=== PATIENT | male | born 1990 | race Caucasian/White ===

== ENCOUNTER 2024-10-25 19:30 | Inpatient (IN) | payer MEDICAID ==
[~2024-10-25] VITALS: Ht 170.2 cm; Wt 64.4 kg
[2024-10-25 20:00] VITALS: BP 114/65; PULSE 107; RESP 18; TEMP 37.5; O2SAT 97
[2024-10-25 20:45] VITALS: BP 114/65; PULSE 107; RESP 18; TEMP 37.5
[2024-10-25] MEDS ORDERED: ONDANSETRON HCL 4MG/2ML INJ IV PRN (21:00)
[2024-10-25] MEDS ORDERED: THROAT LOZENGES-BENZOCAINE/MENTH/CETYLPYRD CL LOZENGES MM PRN (21:00)
[2024-10-25] MEDS ORDERED: DEXTROSE 50% WATER 50ML SYRINGE IV PRN (21:00)
[2024-10-25] MEDS: INSULIN LISPRO 100 UNITS/ML SUBCUT SCH (23:45)
[2024-10-25] MEDS: TRAZODONE HCL 50MG TABLET PO SCH (23:50)
[2024-10-25] MEDS: BLOOD SUGAR DIAGNOSTIC STRIP TEST SCH (23:50)
[2024-10-25] MEDS: HEPARIN 5000 UNITS/ML VIAL SUBCUT SCH (23:50)
[2024-10-26] MEDS: INSULIN GLARGINE 100 UNITS/ML SUBCUT SCH (00:20)
[2024-10-26] MEDS: MAGNESIUM/ALUMINUM HYDROXIDE/SIMETHICONE 30ML UDC PO PRN (00:38)
[2024-10-26 02:47] LABS: CLARITY URINE CLEAR (CLEAR); COLOR URINE YELLOW (YELLOW); GLUCOSE URINE NEGATIVE (NEGATIVE); KETONES URINE NEGATIVE (NEGATIVE); LEUKOCYTE ESTERASE URINE NEGATIVE (NEGATIVE); NITRITE URINE NEGATIVE (NEGATIVE); OCCULT BLOOD URINE NEGATIVE (NEGATIVE); PROTEIN URINE NEGATIVE (NEGATIVE); SPECIFIC GRAVITY URINE 1.023 (1.005-1.030); UROBILINOGEN URINE 0.2 E.U./dL (0.2-1.0)
[2024-10-26 03:08] LABS: *AMPHETAMINES SCREEN URINE NEGATIVE (NEGATIVE); *BARBITURATES SCREEN URINE NEGATIVE (NEGATIVE); *BENZODIAZEPINES SCREEN URINE PRESUMPTIVE POSITIVE (NEGATIVE); *COCAINE SCREEN URINE NEGATIVE (NEGATIVE); CANNABINOID URINE SCREEN PRESUMPTIVE POSITIVE (NEGATIVE); METHADONE URINE SCREEN NEGATIVE (NEGATIVE); OPIATES URINE SCREEN NEGATIVE (NEGATIVE); PHENCYCLIDINE URINE SCREEN NEGATIVE (NEGATIVE)
[2024-10-26 03:09] LABS: ECSTASY MDMA SCREEN URINE NEGATIVE (NEGATIVE)
[2024-10-26 07:35] LABS: BASOPHILS % 0.2 % (0.0-2.0); EOSINOPHILS % 1.1 % (0.0-5.0); HEMATOCRIT. 34.5 % (42.0-52.0); HEMOGLOBIN. 11.4 g/dL (14.0-18.0); LYMPHOCYTES % 20.1 % (20.0-50.0); MEAN CORPUSCULAR HEMOGLOBIN 32.3 pg (28.0-32.0); MEAN CORPUSCULAR VOLUME 97.9 fL (80.0-94.0); MEAN PLATELET VOLUME 9.9 fl (7.4-10.4); MONOCYTES % 6.7 % (2.0-8.0); NEUTROPHILS % 71.9 % (40.0-76.0); PLATELET 70 x1000/uL (130-400); RED BLOOD CELL COUNT 3.52 mill/uL (4.7-6.1); RED CELL DISTRIBUTION WIDTH 15.9 % (11.6-14.6); WHITE BLOOD COUNT 10.5 x1000/uL (4.5-11.0)
[2024-10-26 07:43] VITALS: PULSE 98; RESP 16; O2SAT 98
[2024-10-26] MEDS: IPRATROPIUM/ALBUTEROL 0.5-3(2.5)MG/3ML NEB HHN SCH (07:43)
[2024-10-26 08:00] VITALS: BP 126/70; PULSE 98; RESP 14; TEMP 37; O2SAT 98
[2024-10-26 08:08] LABS: CHLORIDE 101 mEq/L (98-107); SODIUM 134 mEq/L (136-145)
[2024-10-26 08:09] LABS: CALCIUM 8.1 mg/dL (8.7-10.4); CARBON DIOXIDE 25 mEq/L (21-32)
[2024-10-26 08:14] LABS: CREATININE 0.4 mg/dL (0.6-1.3); GLUCOSE 120 mg/dL (70-105); TRIGLYCERIDE 59 mg/dL (0-150)
[2024-10-26 08:15] LABS: LDL CHOLESTEROL 42 mg/dL (5-100); THYROID STIMULATING HORMONE 3.58 uIU/mL (0.55-4.78); UREA NITROGEN BLOOD 17 mg/dL (9-23)
[2024-10-26 08:16] LABS: ALANINE AMINOTRANSFERASE 167 IU/L (10-49); ALBUMIN 2.5 g/dL (3.2-4.8); ASPARTATE AMINOTRANSFERASE 104 IU/L (<34); CHOLESTEROL 119 mg/dL (<200); HDL CHOLESTEROL 54 mg/dL (>55); T4 FREE 1.25 ng/dL (0.89-1.76)
[2024-10-26 08:17] LABS: BILIRUBIN TOTAL 1.4 mg/dL (0.1-1.0); PROTEIN TOTAL 6.5 g/dL (6.0-8.3)
[2024-10-26] MEDS: LACTULOSE 20G/30ML UDC PO SCH (09:10)
[2024-10-26] MEDS: NICOTINE 7MG PATCH TD PRN (09:10)
[2024-10-26] MEDS: FISH OIL/OMEGA-3 FATTY ACIDS 1000MG CAPSULE PO SCH (09:10)
[2024-10-26] MEDS: ASPIRIN 81MG TABLET PO SCH (09:11)
[2024-10-26] MEDS: EMPAGLIFLOZIN 10MG TABLET PO SCH (09:11)
[2024-10-26] MEDS: SPIRONOLACTONE 25MG TABLET PO SCH (09:11)
[2024-10-26] MEDS: LOSARTAN 25 MG TABLET PO SCH (09:11)
[2024-10-26] MEDS: THIAMINE HCL 100MG TABLET PO SCH (09:12)
[2024-10-26] MEDS: MULTIVITAMINS,THER W-MINERALS TABLET PO SCH (09:12)
[2024-10-26] MEDS: FUROSEMIDE 20MG TABLET PO SCH (09:12)
[2024-10-26] MEDS: GABAPENTIN 100MG CAPSULE PO SCH (09:12)
[2024-10-26] MEDS: METOPROLOL SUCCINATE 50MG ER TABLET PO SCH (09:13)
[2024-10-26 12:22] VITALS: PULSE 92; RESP 16; O2SAT 98
[2024-10-26 13:05] LABS: INR 1.2; PROTHROMBIN TIME 12.8 sec (9.6-11.0)
[2024-10-26 16:30] VITALS: PULSE 95; RESP 16; O2SAT 98
[2024-10-26 17:43] LABS: TROPONIN I HIGH SENSITIVITY 78 ng/L (3.0-53)
[2024-10-26 20:00] VITALS: BP 124/86; PULSE 72; RESP 20; TEMP 36.5; O2SAT 96
[2024-10-26 20:32] VITALS: PULSE 105; RESP 18; O2SAT 97
[2024-10-26 20:59] LABS: CREATINE KINASE MB FRACTION 1.5 ng/mL (0.5-3.6)
[2024-10-26] MEDS: CLOTRIMAZOLE 1% CREAM 15GM TOP SCH (22:56)
[2024-10-26] MEDS: LOPERAMIDE HCL 2MG CAPSULE PO PRN (23:44)
[2024-10-27 07:32] VITALS: PULSE 78; RESP 18
[2024-10-27 08:00] VITALS: BP 111/77; PULSE 100; RESP 18; TEMP 36.8; O2SAT 97
[2024-10-27 08:10] LABS: CARBON DIOXIDE 25 mEq/L (21-32); CHLORIDE 103 mEq/L (98-107); SODIUM 135 mEq/L (136-145)
[2024-10-27 08:12] LABS: CALCIUM 8.7 mg/dL (8.7-10.4)
[2024-10-27 08:15] LABS: CREATININE 0.5 mg/dL (0.6-1.3)
[2024-10-27 08:16] LABS: GLUCOSE 88 mg/dL (70-105)
[2024-10-27 08:17] LABS: UREA NITROGEN BLOOD 16 mg/dL (9-23)
[2024-10-27 08:19] LABS: PHOSPHORUS 4.1 mg/dL (2.5-4.9)
[2024-10-27 08:53] LABS: BASOPHILS % 0.2 % (0.0-2.0); EOSINOPHILS % 1.4 % (0.0-5.0); HEMATOCRIT. 37.9 % (42.0-52.0); HEMOGLOBIN. 12.6 g/dL (14.0-18.0); LYMPHOCYTES % 18.7 % (20.0-50.0); MEAN CORPUSCULAR HEMOGLOBIN 32.5 pg (28.0-32.0); MEAN CORPUSCULAR HGB CONC 33.2 g/dL (31.0-37.0); MEAN CORPUSCULAR VOLUME 97.7 fL (80.0-94.0); MEAN PLATELET VOLUME 9.6 fl (7.4-10.4); MONOCYTES % 5.2 % (2.0-8.0); NEUTROPHILS % 74.5 % (40.0-76.0); PLATELET 72 x1000/uL (130-400); RED BLOOD CELL COUNT 3.88 mill/uL (4.7-6.1); RED CELL DISTRIBUTION WIDTH 15.9 % (11.6-14.6)
[2024-10-27 20:00] VITALS: BP 105/68; PULSE 104; RESP 19; TEMP 36.6; O2SAT 99
[2024-10-27 20:05] VITALS: PULSE 92; RESP 18; O2SAT 97
[2024-10-27 23:47] VITALS: PULSE 89; RESP 18; O2SAT 98
[2024-10-28 08:00] VITALS: BP 113/71; PULSE 88; RESP 20; TEMP 36.3; O2SAT 98
[2024-10-28 09:43] VITALS: PULSE 97; RESP 16; O2SAT 97
[2024-10-28 13:17] VITALS: PULSE 90; RESP 16; O2SAT 99
[2024-10-28 17:20] VITALS: PULSE 94; RESP 18; O2SAT 99
[2024-10-28 20:00] VITALS: BP 103/63; PULSE 90; RESP 19; TEMP 36.5; O2SAT 97
[2024-10-29] VITALS (7 sets, daily range): BP systolic 96–113; BP diastolic 65–76; PULSE 94–126; RESP 18–20; TEMP 36.4–37.8; O2SAT 95–99
[2024-10-29 06:13] LABS: BASOPHILS % 0.4 % (0.0-2.0); CALCIUM 8.3 mg/dL (8.7-10.4); CARBON DIOXIDE 21 mEq/L (21-32); CHLORIDE 105 mEq/L (98-107); EOSINOPHILS % 2.1 % (0.0-5.0); HEMATOCRIT. 34.9 % (42.0-52.0); HEMOGLOBIN. 11.7 g/dL (14.0-18.0); MEAN CORPUSCULAR HEMOGLOBIN 33.2 pg (28.0-32.0); MEAN CORPUSCULAR HGB CONC 33.7 g/dL (31.0-37.0); MEAN CORPUSCULAR VOLUME 98.6 fL (80.0-94.0); MEAN PLATELET VOLUME 9.3 fl (7.4-10.4); MONOCYTES % 8.5 % (2.0-8.0); PLATELET 62 x1000/uL (130-400); POTASSIUM 3.5 mEq/L (3.5-5.1); RED BLOOD CELL COUNT 3.53 mill/uL (4.7-6.1); RED CELL DISTRIBUTION WIDTH 15.8 % (11.6-14.6); SODIUM 134 mEq/L (136-145); WHITE BLOOD COUNT 10.9 x1000/uL (4.5-11.0)
[2024-10-29 06:18] LABS: GLUCOSE 77 mg/dL (70-105)
[2024-10-29 06:19] LABS: UREA NITROGEN BLOOD 13 mg/dL (9-23)
[2024-10-29 06:21] LABS: PHOSPHORUS 3.5 mg/dL (2.5-4.9)
[2024-10-29 06:29] LABS: CREATININE 0.3 mg/dL (0.6-1.3)
[2024-10-29] MEDS: ACETAMINOPHEN 325MG TABLET PO PRN (08:37)
[2024-10-30] VITALS (7 sets, daily range): BP systolic 107–114; BP diastolic 55–70; PULSE 72–112; RESP 16–20; TEMP 36.3–36.4; O2SAT 97–98
[2024-10-31 02:19] VITALS: PULSE 88; RESP 18; O2SAT 97
[2024-10-31 07:15] LABS: CARBON DIOXIDE 22 mEq/L (21-32); CHLORIDE 104 mEq/L (98-107); POTASSIUM 3.2 mEq/L (3.5-5.1); SODIUM 136 mEq/L (136-145)
[2024-10-31 07:16] LABS: CALCIUM 8.5 mg/dL (8.7-10.4)
[2024-10-31 07:20] LABS: IRON 66 ug/dL (65-175)
[2024-10-31 07:21] LABS: GLUCOSE 110 mg/dL (70-105); UREA NITROGEN BLOOD 13 mg/dL (9-23)
[2024-10-31 07:23] LABS: PHOSPHORUS 3.8 mg/dL (2.5-4.9); TOTAL IRON BINDING CAPACITY 322 ug/dl (250-425)
[2024-10-31 07:26] LABS: CREATININE 0.4 mg/dL (0.6-1.3)
[2024-10-31 08:00] VITALS: BP 97/62; PULSE 62; RESP 18; TEMP 36.3; O2SAT 98
[2024-10-31 08:09] LABS: BASOPHILS % 0.6 % (0.0-2.0); EOSINOPHILS % 2.1 % (0.0-5.0); HEMATOCRIT. 30.8 % (42.0-52.0); HEMOGLOBIN. 10.3 g/dL (14.0-18.0); LYMPHOCYTES % 25.7 % (20.0-50.0); MEAN CORPUSCULAR HEMOGLOBIN 32.8 pg (28.0-32.0); MEAN CORPUSCULAR HGB CONC 33.4 g/dL (31.0-37.0); MEAN CORPUSCULAR VOLUME 98.1 fL (80.0-94.0); MEAN PLATELET VOLUME 9.7 fl (7.4-10.4); MONOCYTES % 11.6 % (2.0-8.0); PLATELET 54 x1000/uL (130-400); RED BLOOD CELL COUNT 3.14 mill/uL (4.7-6.1); RED CELL DISTRIBUTION WIDTH 15.3 % (11.6-14.6); WHITE BLOOD COUNT 7.6 x1000/uL (4.5-11.0)
[2024-10-31] MEDS: POTASSIUM CHLORIDE 20MEQ TABLET SR PO NR (18:11)
[2024-10-31 20:00] VITALS: BP 113/70; PULSE 111; RESP 18; TEMP 36.7; O2SAT 97
[2024-11-01 08:00] VITALS: BP 110/74; PULSE 82; RESP 20; TEMP 36.4; O2SAT 100
[2024-11-01 20:00] VITALS: BP 111/75; PULSE 105; RESP 19; TEMP 36.2; O2SAT 99
[2024-11-02 08:00] VITALS: BP 109/55; PULSE 89; RESP 20; TEMP 36.4; O2SAT 99
[2024-11-02] MEDS: ACETAMINOPHEN 325MG TABLET PO PRN (13:23)
[2024-11-02 20:00] VITALS: BP 111/74; PULSE 8; RESP 18; TEMP 36.2; O2SAT 98
[2024-11-03 08:00] VITALS: BP 115/71; PULSE 19; PULSE 68; RESP 19; TEMP 36.5; O2SAT 97
[2024-11-03 20:00] VITALS: BP 111/69; PULSE 96; RESP 18; TEMP 36.7; O2SAT 100
[2024-11-04 08:00] VITALS: BP 105/73; PULSE 92; RESP 18; TEMP 36.7; O2SAT 98
[2024-11-04 19:59] VITALS: BP 99/54; PULSE 88; RESP 20; TEMP 36.4; O2SAT 100
[2024-11-05 07:32] VITALS: BP 143/72; PULSE 87; RESP 20; TEMP 36.7; O2SAT 100
[2024-11-05 20:00] VITALS: BP 110/57; PULSE 86; RESP 18; TEMP 36.8; O2SAT 98
[2024-11-06 08:00] VITALS: BP 113/70; PULSE 89; RESP 20; TEMP 36.4; O2SAT 98
[2024-11-06 20:00] VITALS: BP 126/83; PULSE 60; RESP 16; TEMP 36.6; O2SAT 99
[2024-11-07 04:00] VITALS: BP 103/51; PULSE 97; RESP 16; TEMP 37.1; O2SAT 98
[2024-11-07 08:00] VITALS: BP 125/76; PULSE 88; RESP 18; TEMP 37.2; O2SAT 99
[2024-11-07 20:00] VITALS: BP 126/76; PULSE 95; RESP 19; TEMP 36.9; O2SAT 100
[2024-11-08 05:55] LABS: CHLORIDE 108 mEq/L (98-107); POTASSIUM 3.5 mEq/L (3.5-5.1); SODIUM 140 mEq/L (136-145)
[2024-11-08 05:56] LABS: CARBON DIOXIDE 22 mEq/L (21-32)
[2024-11-08 05:57] LABS: CALCIUM 8.8 mg/dL (8.7-10.4)
[2024-11-08 06:01] LABS: CREATININE 0.4 mg/dL (0.6-1.3); GLUCOSE 131 mg/dL (70-105)
[2024-11-08 06:02] LABS: UREA NITROGEN BLOOD 9 mg/dL (9-23)
[2024-11-08 07:00] LABS: BASOPHILS % 0.6 % (0.0-2.0); EOSINOPHILS % 2.3 % (0.0-5.0); HEMATOCRIT. 31.1 % (42.0-52.0); HEMOGLOBIN. 10.2 g/dL (14.0-18.0); LYMPHOCYTES % 34.9 % (20.0-50.0); MEAN CORPUSCULAR HEMOGLOBIN 32.7 pg (28.0-32.0); MEAN CORPUSCULAR HGB CONC 32.9 g/dL (31.0-37.0); MEAN CORPUSCULAR VOLUME 99.3 fL (80.0-94.0); MEAN PLATELET VOLUME 8.3 fl (7.4-10.4); MONOCYTES % 14.3 % (2.0-8.0); NEUTROPHILS % 47.9 % (40.0-76.0); PLATELET 345 x1000/uL (130-400); RED BLOOD CELL COUNT 3.14 mill/uL (4.7-6.1); RED CELL DISTRIBUTION WIDTH 14.8 % (11.6-14.6); WHITE BLOOD COUNT 4.7 x1000/uL (4.5-11.0)
[2024-11-08 08:00] VITALS: BP 116/71; PULSE 87; RESP 18; TEMP 36.5; O2SAT 96
[2024-11-08 20:00] VITALS: BP 117/70; PULSE 84; RESP 18; TEMP 36.6; O2SAT 96
[2024-11-09 08:00] VITALS: BP 109/61; PULSE 90; RESP 18; TEMP 35.9; O2SAT 96
[2024-11-09 20:00] VITALS: BP 112/78; PULSE 104; RESP 18; TEMP 36.6; O2SAT 99
[2024-11-10 08:00] VITALS: BP 117/80; PULSE 91; RESP 18; TEMP 36.1; O2SAT 99
[2024-11-10 20:00] VITALS: BP 106/69; PULSE 91; RESP 18; TEMP 37.2; O2SAT 98
[2024-11-11] VITALS: BP 109/63; PULSE 90; RESP 18; TEMP 36.8; O2SAT 100
[2024-11-11 04:00] VITALS: BP 116/64; PULSE 94; RESP 20; TEMP 36.9; O2SAT 100
[2024-11-11 08:00] VITALS: BP 112/78; PULSE 93; RESP 18; TEMP 36.4; O2SAT 100
[2024-11-11 20:00] VITALS: BP 106/70; PULSE 96; RESP 19; TEMP 36.6; O2SAT 99
[2024-11-12 08:00] VITALS: BP 103/62; PULSE 98; RESP 20; TEMP 36.3; O2SAT 98
[2024-11-12 20:00] VITALS: BP 117/81; PULSE 60; RESP 18; TEMP 35.8; O2SAT 97
[2024-11-13 07:18] LABS: CALCIUM 9.4 mg/dL (8.7-10.4); CARBON DIOXIDE 23 mEq/L (21-32); CHLORIDE 107 mEq/L (98-107); POTASSIUM 3.5 mEq/L (3.5-5.1); SODIUM 141 mEq/L (136-145)
[2024-11-13 07:24] LABS: CREATININE 0.5 mg/dL (0.6-1.3); GLUCOSE 110 mg/dL (70-105); UREA NITROGEN BLOOD 11 mg/dL (9-23)
[2024-11-13 08:00] VITALS: BP 128/70; PULSE 84; RESP 18; TEMP 36.7; O2SAT 96
[2024-11-13 20:00] VITALS: BP 115/60; PULSE 87; RESP 19; TEMP 36.7; O2SAT 99
[2024-11-14 08:00] VITALS: BP 108/65; PULSE 78; RESP 18; TEMP 36.5; O2SAT 98
[2024-11-14 20:00] VITALS: BP 110/63; PULSE 90; RESP 18; TEMP 36.7; O2SAT 98
[2024-11-15 07:54] VITALS: BP 116/75; PULSE 85; RESP 18; TEMP 37.3; O2SAT 99
[2024-11-15 20:00] VITALS: BP 114/76; PULSE 100; RESP 18; TEMP 36.2; O2SAT 98
[2024-11-16 08:00] VITALS: BP 104/81; PULSE 62; RESP 18; TEMP 36.7; O2SAT 97
[2024-11-16 20:00] VITALS: BP 136/72; PULSE 84; RESP 17; TEMP 36.5; O2SAT 99
[2024-11-17 08:00] VITALS: BP 111/85; PULSE 82; RESP 16; TEMP 36.5; O2SAT 98
[2024-11-17 20:00] VITALS: BP 110/62; PULSE 92; RESP 19; TEMP 36.7; O2SAT 98
[2024-11-18 08:00] VITALS: BP 111/58; PULSE 82; RESP 16; TEMP 36.5; O2SAT 98
[2024-11-18 20:00] VITALS: BP 124/80; PULSE 98; RESP 18; TEMP 36.2; O2SAT 98
[2024-11-19 08:00] VITALS: BP 166/56; PULSE 57; RESP 18; TEMP 36.2; O2SAT 100
[2024-11-19 20:00] VITALS: BP 100/63; PULSE 75; RESP 18; TEMP 36.2; O2SAT 98
[2024-11-20 08:00] VITALS: BP 130/61; PULSE 89; RESP 18; TEMP 35.8; O2SAT 96
[2024-11-20 20:00] VITALS: BP 112/68; PULSE 93; RESP 20; TEMP 36.6; O2SAT 98
[2024-11-21 08:00] VITALS: BP 105/55; PULSE 88; RESP 18; TEMP 36.6; O2SAT 99
[2024-11-21] MEDS ORDERED: ASPI-1160 PO (08:32)
[2024-11-21] MEDS ORDERED: LOSA25TA26 PO (08:32)
[2024-11-21] MEDS ORDERED: METO-385 PO (08:32)
[2024-11-21] MEDS ORDERED: EMPA10TA PO (08:32)
[2024-11-21] MEDS ORDERED: LANTUSUD SUBCUT (08:32)
[2024-11-21] MEDS ORDERED: GABA-529 PO (08:32)
[2024-11-21] MEDS ORDERED: SPIR25TA PO (08:32)
[2024-11-21] MEDS ORDERED: FURO20TA4 PO (08:32)
[2024-11-21 10:14] VITALS: BP 112/68; PULSE 88; TEMP 97.9; O2SAT 99
== END 2024-11-21 18:54 | disposition home health service (06) | DRG 43 ==
PROVIDERS: ADMIT Psychiatry & Neurology Neurology; ATTEND Hospitalist
DX: G61.9 Inflammatory polyneuropathy, unspecified (principal); J96.91 Respiratory failure, unspecified with hypoxia; I21.4 Non-ST elevation (NSTEMI) myocardial infarction; A41.9 Sepsis, unspecified organism; G82.50 Quadriplegia, unspecified; I50.23 Acute on chronic systolic (congestive) heart failure; D69.6 Thrombocytopenia, unspecified; J18.9 Pneumonia, unspecified organism; E87.20 Acidosis, unspecified; E87.1 Hypo-osmolality and hyponatremia; F10.10 Alcohol abuse, uncomplicated; N31.9 Neuromuscular dysfunction of bladder, unspecified; K74.60 Unspecified cirrhosis of liver; N39.0 Urinary tract infection, site not specified; D64.9 Anemia, unspecified; E87.6 Hypokalemia; D50.9 Iron deficiency anemia, unspecified; G47.00 Insomnia, unspecified; K76.0 Fatty (change of) liver, not elsewhere classified; E11.40 Type 2 diabetes mellitus with diabetic neuropathy, unspecified; F17.210 Nicotine dependence, cigarettes, uncomplicated; J98.11 Atelectasis; R13.10 Dysphagia, unspecified; R29.6 Repeated falls; F17.203 Nicotine dependence unspecified, with withdrawal; K30 Functional dyspepsia; J81.1 Chronic pulmonary edema; R60.0 Localized edema; R41.89 Other symptoms and signs involving cognitive functions and awareness; R45.87 Impulsiveness; M25.561 Pain in right knee; M25.562 Pain in left knee; Z91.81 History of falling; Z79.899 Other long term (current) drug therapy
CPT/HCPCS: 36415; 73560; 74230; 80048; 80053; 80061; 80305; 81003; 82550; 82553; 82728; 82962; 83036; 83540; 83550; 83735; 83880; 84100; 84439; 84443; 84484; 85025; 92523; 92610; 92611; 93005; 93306; 93970; 94070; 94640; 97110; 97112; 97116; 97150; 97163; 97166; 97530; 97535; 97542; A4606; J1644; J1815